=== PATIENT | male | born 1935 | race Caucasian/White ===

== ENCOUNTER 2022-12-11 13:00 | Emergency (ER) | payer OTHER ==
[~2022-12-11] VITALS: Ht 170.2 cm; Wt 70.3 kg
[2022-12-11 15:40] VITALS: BP 168/94; PULSE 80; RESP 16; O2SAT 100
== END 2022-12-11 15:50 | disposition home or self-care (01) ==
LOC: EDH 13:00
DX: S42.301A Unspecified fracture of shaft of humerus, right arm, initial encounter for closed fracture (principal); M25.511 Pain in right shoulder; E78.00 Pure hypercholesterolemia, unspecified; I10 Essential (primary) hypertension; Z85.46 Personal history of malignant neoplasm of prostate; Z88.5 Allergy status to narcotic agent; Z90.49 Acquired absence of other specified parts of digestive tract; Z90.5 Acquired absence of kidney; W18.39XA Other fall on same level, initial encounter; Y93.89 Activity, other specified; Y92.89 Other specified places as the place of occurrence of the external cause; Y99.8 Other external cause status
CPT/HCPCS: 29105; 73030; 73060